=== PATIENT | female | born 1930 | race African-American/Black ===

== ENCOUNTER → 2016-11-28 | Outpatient (CLI) | payer MEDICARE ==
--- NOTE | 2016-11-28 14:48 | CARD ---
APPROVED REPORT EXAM: Two-dimensional and M-mode echocardiogram with Doppler and color Doppler. Other Information Quality : AverageHR: 51bpm Rhythm : NSR, Bradycardia INDICATION Murmur 2D DIMENSIONS RVDd2.9 (2.9-3.5cm)Left Atrium(2D)4.0 (1.6-4.0cm) IVSd0.9 (0.7-1.1cm)Aortic Root(2D)2.9 (2.0-3.7cm) LVDd4.8 (3.9-5.9cm)LVOT Diameter2.0 (1.8-2.4cm) PWd1.0 (0.7-1.1cm)LVDs1.7 (2.5-4.0cm) FS (%) 64.8 %SV100.5 ml LVEF(%)92.3 (>50%) Aortic Valve AoV Peak Adonis.158.3cm/sAoV VTI38.8cm AO Peak GR.10.0mmHgAO Mean GR.6mmHg AI P 1/2 [id number] Mitral Valve MV E Dohemckw10.1cm/sMV DECEL ODGZ832cy MV A Xoinujjj104.1cm/sMV E Mean Gr.2mmHg MV [id number]/A Ratio0.9 MVA (PHT)2.58cm2 TDI E/Lateral E'17.9E/Medial E'17.9 Pulmonary Valve PV Peak Vttzqnzm521.2cm/sPV Peak Grad.9mmHg RVOT VTI25.2cm Tricuspid Valve TR P. Tenpiywz545op/sRAP [id number] TR Peak Gr.[id number] Pulmonary Vein S1 Cbeaeurz33.2cm/sD2 Bmfwkwme92.8cm/s LEFT VENTRICLE The left ventricle is normal size. There is normal left ventricular wall thickness. Left ventricle sy stolic function is normal. The Ejection Fraction is 65-70%. There is normal LV segmental wall motion. Transmitral Doppler flow pattern is Grade I-abnormal relaxation pattern. There is no ventricular sep delio defect visualized. RIGHT VENTRICLE The right ventricle is normal size. There is normal right ventricular wall thickness. The right ventr icular systolic function is normal. ATRIA The left atrium size is normal. The right atrium size is normal. The interatrial septum is intact wit h no evidence for an atrial septal defect or patent foramen ovale as noted on 2-D or Doppler imaging. AORTIC VALVE The aortic valve is normal in structure and function. The aortic valve is trileaflet. Doppler and Col or Flow revealed moderate aortic regurgitation. There is no significant aortic valvular stenosis. MITRAL VALVE The mitral valve is normal in structure and function. There is no evidence of mitral valve prolapse. There is no mitral valve stenosis. Doppler and Color Flow revealed no mitral valve regurgitation note d. TRICUSPID VALVE The tricuspid valve is normal in structure. Doppler and Color Flow revealed mild tricuspid regurgitat ion. There is mild pulmonary hypertension. The PA pressure was estimated at 40 mmHg. There is no tric uspid valve stenosis. PULMONIC VALVE The pulmonary valve is normal in structure and function. Doppler and Color Flow revealed trace to mil d pulmonic valvular regurgitation. There is no pulmonic valvular stenosis. GREAT VESSELS The aortic root is normal in size. The ascending aorta is normal in size. Normal pulmonary venous osmani w (Doppler). The IVC is normal in size and collapses >50% with inspiration. PERICARDIAL EFFUSION There is no evidence of significant pericardial effusion. Critical Notification Critical Value: No <Conclusion> Left ventricle systolic function is normal. The Ejection Fraction is 65-70%. There is normal LV segmental wall motion. Transmitral Doppler flow pattern is Grade I-abnormal relaxation pattern. Moderate aortic regurgitation. Mild tricuspid regurgitation. There is mild pulmonary hypertension. The PA pressure was estimated at 40 mmHg. There is no evidence of significant pericardial effusion.
== END | disposition home or self-care (01) ==
LOC: ECHO 09:24
PROVIDERS: ATTEND Pediatrics
DX: I35.1 Nonrheumatic aortic (valve) insufficiency (principal); I27.2 Other secondary pulmonary hypertension; I07.1 Rheumatic tricuspid insufficiency
CPT/HCPCS: 93306

== ENCOUNTER → 2019-07-29 | Outpatient (CLI) | payer MEDICARE ==
--- NOTE | 2019-07-29 16:26 | RAD ---
EXAM: Bilateral lower extremity venous Doppler sonogram. HISTORY: Pain and swelling. TECHNIQUE: Lakhani scale and color Doppler sonographic evaluation of the bilateral lower extremity veins with spectral waveform analysis was performed. FINDINGS: There is normal color flow, normal compressibility and there are normal spectral waveforms in the common femoral, superficial femoral, popliteal, posterior tibial and greater saphenous veins. IMPRESSION: No Doppler evidence of lower extremity deep venous thrombosis. Electronically signed by: Esther Fair MD (07/29/2019 4:22 PM) [place] [id number]
== END | disposition home or self-care (01) ==
LOC: US 15:34
PROVIDERS: ATTEND Podiatrist Foot & Ankle Surgery
DX: M79.605 Pain in left leg (principal); M79.604 Pain in right leg; M79.89 Other specified soft tissue disorders
CPT/HCPCS: 93970